=== PATIENT | male | born 1960 | race Hispanic/Latino ===

== ENCOUNTER 2020-08-28 07:46 | Emergency (ER) | payer BC ==
[~2020-08-28] VITALS: Ht 172.7 cm; Wt 67.7 kg
[2020-08-28] MEDS ORDERED: MICARDIS80 MG PO (08:17)
[2020-08-28] MEDS ORDERED: HYDROCHLOROTHIA25 MG (08:17)
[2020-08-28] MEDS ORDERED: METOPROLOL SUCC50 MG PO (08:17)
--- OUTSIDE RECORDS SUMMARY | 2020-08-28 08:29 | XMS REPORT | Continuity of Care Document ---
Author Author Nuovo WindGRECIA [employer] Address Unknown Phone Unavailable Care Team Providers Care Ecological Economist Name Role Phone [employer] Unavailable Un available Problems Problem Status Onset Date Classification Date Reported Comments Source Discharge Diagnosis: Abdominal pain 09/06/2016 09/09/2016 [facility] SENT- ABDOMINAL PAIN Active 09/06/2016 [facility] CARDIOLOGY Active 09/26/2014 [facility] Hypertensive disorder, systemic arterial (disorder) Resolved Problem 04/05/2018 [facility] Medications Medication Details Route Status Patient Instructions Ordering Provider Order Date Source Brompheniramine Maleate 0.4 MG/ML / Dext romethorphan Hydrobromide 2 MG/ML / Pseudoephedrine Hydrochloride 6 MG/ML Oral Solution [Bromfed DM] See Instructions, PRN cough, 5-10 mL PO TID 8 day, # 240 mL, 0 Refill(s), Pharmacy: [facility]/pharmacy #[id number] Inactive 12/29/2017 [facility] Brompheniramine Maleate 0.4 MG/ML / Dext romethorphan Hydrobromide 2 MG/ML / Pseudoephedrine Hydrochloride 6 MG/ML Oral Solution [Bromfed DM] See Instructions, PRN cough, 5-10 mL PO TID 8 day, # 240 mL, 0 Refill(s), Pharmacy: [facility]/pharmacy #[id number] Inactive 12/29/2017 [facility] Oseltamivir 75 MG Oral Capsule [Tamiflu] 75 mg, PO, Q12H, X 5 day, # 10 cap, 0 Refill(s), Pharmacy: [facility]/pharmacy #[id number] Inactive 12/29/2017 [facility] azithromycin 250 mg oral tablet See Instructions, Take 2 tablets by mouth the first day then 1 tablet by mouth daily on days 2-5., X 5 day, # 6 tab, 0 Refill(s), Pharmacy: [facility]/pharmacy #[id number] No Longer Active 12/29/2017 [facility] Codeine Phosphate 2 MG/ML / Guaifenesin 20 MG/ML Oral Solution [Cheratussin] 5 mL, PO, Q6H, PRN for cough and congest ion, X 7 day, # 120 mL, 0 Refill(s) Active 10/21/2017 [facility] Amoxicillin 875 MG / Clavulanate 125 MG Oral Tablet [Augmentin 875-mg] 875 mg = 1 tab, PO, BID, X 10 day, # 20 tab, 0 Refill(s), [id number] Active 10/21/2017 [facility] Oseltamivir 75 MG Oral Capsule [Tamiflu] 75 mg, PO, Q12H, X 5 day, # 10 cap, 0 Refill(s), [id number] Active 10[facility]21/2017 [facility] tramadol hydrochloride 50 MG Oral Tablet 50 mg = 1 tab, PO, Q4H, PRN as needed for pain, X 7 day, # 24 tab, 0 Refill(s) Active 09/06/2016 [facility] Ondansetron 4 mg, Route: IVP, Drug form: INJ, ONCE, Dosing Weight 69.091, kg, Priority: STAT, Start date: 09/06/16 13:54:00 MOLDER OPERATOR, Stop date: 09/06/16 13:54:00 MOLDER OPERATOR Inactive 09/06/2016 [facility] Morphine 4 mg, Route: IVP, ONC E, Dosing Weight 69.091, kg, Priority: STAT, Start date: 09/06/16 13:54:00 MOLDER OPERATOR, Stop date: 09/06/16 13:54:00 MOLDER OPERATOR Inactive 09/06/2016 [facility] Saline Flush 0.9% Notes: prese rvative free. Inactive 09/06/2016 [facility] Allergies, Adverse Reactions, Alerts No Known Medication Allergies Immunizations No Data Provided for This Section Results Order Name Results Value Reference Range Date Interpretation Comments Source CHEM PANEL eGFR 97 09/06/2016 Result Comment: The eGFR is calculated using the CKD-EPI formula. In most young, healthy individuals the eGFR will be >90 mL/min/1.73m2. The eGFR declines with age. An eGFR of 60-89 may be normal in some populations, particularly the elderly, for whom the CKD-EPI formula has not been extensively validated. Use of the eGFR is not recommended in the following populations:

Individuals with unstable creatinine concentrations, including patients and those with serious co-morbid conditions.

Patients with extremes in muscle mass or diet.

The data above are obtained from the National Kidney Disease Education Program (NKDEP) which additionally recommends that when the eGFR is used in patients with extremes of body mass index for purposes of drug dosing, the eGFR should be multiplied by the estimated BMI. [facility] CHEM PANEL Total Protein 7.5 6.4 - 8.4 09/06/2016 [facility] CHEM PANEL Albumin Lvl 3.8 3.5 - 5.0 09/06/2016 [facility] CHEM PANEL ALT 36 0 - 65 09/06/2016 [facility] CHEM PANEL Bili Total 1.2 0.2 - 1.3 09/06/2016 [facility] CHEM PANEL Alk Phos 64 39 - 136 09/06/2016 [facility] CHEM PANEL AST 21 0 - 37 09/06/2016 [facility] CHEM PANEL Chloride Lvl 104 95 - 109 09/06/2016 [facility] CHEM PANEL Sodium Lvl 140 135 - 145 09/06/2016 [facility] CHEM PANEL Potassium Lvl 3.7 3.5 - 5.1 09/06/2016 [facility] CHEM PANEL CO2 31 24 - 32 09/06/2016 [facility] CHEM PANEL Calcium Lvl 8.9 8.5 - 10.5 09/06/2016 [facility] CHEM PANEL Glucose Lvl 97 70 - 99 09/06/2016 [facility] CHEM PANEL BUN 15 7 - 22 09/06/2016 [facility] CHEM PANEL Creatinine Lvl 0.84 0.50 - 1.40 09/06/2016 [facility] CHEM PANEL AGAP 8.7 10.0 - 20.0 09/06/2016 [facility] CHEM PANEL B/C Ratio 18 6 - 25 09/06/2016 [facility] CHEM PANEL Globulin 3.7 2.7 - 4.2 09/06/2016 [facility] CHEM PANEL A/G Ratio 1.0 0.7 - 1.6 09/06/2016 [facility] CHEM PANEL Lipase Lvl 149 73 - 393 09/06/2016 [facility] CHEM PANEL Magnesium Lvl 2.1 1.8 - 2.4 09/06/2016 [facility] HEMATOLOGY Monocytes # 0.5 0.0 - 0.8 09/06/2016 [facility] HEMATOLOGY Eosinophils # 0.1 0.0 - 0.5 09/06/2016 [facility] HEMATOLOGY Monocytes 7.3 2.0 - 12.0 09/06/2016 [facility] HEMATOLOGY Segs 63.5 45.0 - 75.0 09/06/2016 [facility] HEMATOLOGY Lymphocytes 27.6 20.0 - 40.0 09/06/2016 [facility] HEMATOLOGY Segs-Bands # 4.2 1.5 - 8.1 09/06/2016 [facility] HEMATOLOGY Lymphocytes # 1.8 1.0 - 5.5 09/06/2016 [facility] HEMATOLOGY Basophils 0.5 0.0 - 1.0 09/06/2016 [facility] HEMATOLOGY Eosinophils 1.1 0.0 - 4.0 09/06/2016 [facility] HEMATOLOGY MPV 7.8 7.4 - 10.4 09/06/2016 [facility] HEMATOLOGY Platelet 160 133 - 450 09/06/2016 [facility] HEMATOLOGY RDW 12.8 11.5 - 14.5 09/06/2016 [facility] HEMATOLOGY RBC 5.20 4.70 - 6.10 09/06/2016 [facility] HEMATOLOGY WBC 6.6 3.7 - 10.4 09/06/2016 [facility] HEMATOLOGY Hgb 15.2 14.0 - 18.0 09/06/2016 [facility] HEMATOLOGY MCV 88.0 80.0 - 94.0 09/06/2016 [facility] HEMATOLOGY Hct 45.7 42.0 - 54.0 09/06/2016 [facility] MCHC 33.2 32.0 - 36.0 09/06/2016 [facility] MCH 29.2 27.0 - 31.0 09/06/2016 [facility] URINE AND STOOL UA Protein Negative mg/dL Negative mg/dL 09/06/2016 [facility] URINE AND STOOL UA Glucose Negative mg/dL Negative mg/dL 09/06/2016 [facility] URINE AND STOOL UA Spec Grav 1.016 <=1.030 09/06/2016 [facility] URINE AND STOOL UA pH 6.0 5.0 - 8.0 09/06/2016 [facility] URINE AND STOOL UA Turbidity Clear (09/06/16 12:44 PM) Clear 09/06/2016 [facility] URINE AND STOOL UA Color Ltyellow 09/06/2016 [facility] URINE AND STOOL UA Sq Epi None Seen 09/06/2016 [facility] URINE AND STOOL UA Urobilinogen <=1.0 mg/dL 0.1 - 1.0 09/06/2016 [facility] URINE AND STOOL UA RBC <1 0 - 2 09/06/2016 [facility] URINE AND STOOL UA Mucus Few /LPF None Seen /LPF 09/06/2016 [facility] URINE AND STOOL UA Ketones Negative mg/dL Negative mg/dL 09/06/2016 [facility] URINE AND STOOL UA Bili Negative *NA* (09/06/16 12:44 PM) Negative 09/06/2016 [facility] URINE AND STOOL UA Nitrite Negative (09/06/16 12:44 PM) Negative 09/06/2016 [facility] URINE AND STOOL UA Leuk Est Negative (09/06/16 12:44 PM) Negative 09/06/2016 [facility] URINE AND STOOL UA Blood Negative (09/06/16 12:44 PM) Negative 09/06/2016 [facility] URINE AND STOOL UA WBC <1 0 - 5 09/06/2016 [facility] Pathology Reports No Data Provided for This Section Diagnostic Reports Report Value Date Source ED Abdomen/Pelvis IV contrast only CT Study: ED Abdomen/Pelvis IV contrast only CT Clinical Indication: Right lower quadrant pain Comparison: None TECHNIQUE: Multiple axial CT images of the abdomen and pelvis were acquired following the administration of intravenous contrast. Sagittal and coronal reformatted images were performed. CT Radiation Dose DLP 1509.34 mGy-cm FINDINGS: The visualized lung bases are clear bilaterally. The liver is diffusely low in attenuation, compatible with fatty infiltration. 1.2 cm left renal hypodense cyst is seen. Gallbladder, pancreas, spleen, adrenal glands, and right kidney are unremarkable. No intrahepatic or extrahepatic biliary duct dilatation is seen. Urinary bladder is well-distended. Prostate is unremarkable. Numerous diverticula throughout the sigmoid and descending colon are seen without inflammatory change to suggest acute diverticulitis. Appendix is unremarkable. No free air, free fluid, or pathologic adenopathy is seen. Degenerative changes of the lumbar spine are seen. IMPRESSION: 1. No acute intra-abdominal/pelvic abnor mality. 2. No evidence of acute appendicitis. 3. Colonic diverticulosis without acute diverticulitis. 4. Hepatic steatosis. SL: [id number] 09/06/2016 [facility] Consultation Notes No Data Provided for This Section Discharge Summaries No Data Provided for This Section History and Physicals No Data Provided for This Section Vital Signs Vital Sign Value Date Comments Source BMI Calculated 23.16 12/29/2017 [facility] Weight 69.091 12/29/2017 [facility] Temperature Oral (F) 98.2 F 12/29/2017 [facility] Heart Rate 88 12/29/2017 [facility] Systolic (mm Hg) 128 12/29/2017 [facility] Diastolic (mm Hg) 73 12/29/2017 [facility] Height 172.72 cm 12/29/2017 [facility] BMI Calculated 22.7 10/21/2017 [facility] Weight 67.727 10/21/2017 [facility] Height 172.72 cm 10/21/2017 [facility] Temperature Oral (F) 97.5 F 10/21/2017 [facility] Heart Rate 84 10/21/2017 [facility] Systolic (mm Hg) 127 10/21/2017 [facility] Diastolic (mm Hg) 75 10/21/2017 [facility] Respitory Rate 18 10/21/2017 [facility] Heart Rate 68 09/06/2016 [facility] Temperature Oral (F) 97.5 F 09/06/2016 [facility] Systolic (mm Hg) 126 09/06/2016 [facility] Diastolic (mm Hg) 65 09/06/2016 [facility] Respitory Rate 18 09/06/2016 [facility] Height 172.72 cm 09/06/2016 [facility] BMI Calculated 23.16 09/06/2016 [facility] Weight 69.091 09/06/2016 [facility] Temperature Oral (F) 97.7 F 09/06/2016 [facility] Respitory Rate 18 09/06/2016 [facility] Systolic (mm Hg) 181 09/06/2016 [facility] Diastolic (mm Hg) 79 09/06/2016 [facility] Heart Rate 80 09/06/2016 [facility] Encounters Location Location Details Encounter Type Encounter Number Reason For Visit Attending Provider ADM Date DC Date Status Source [facility] [id number] David Danielle 09/06/2016 09/06/2016 [facility] Outpatient [id number] BJ MAGALLANES 10/21/2017 [facility] [place] [facility] [id number] 10/21/2017 10/22/2017 [facility] Outpatient [id number] BJKACEY MAGALLANES 12/28/2017 [facility] [place] [facility] [id number] 12/29/2017 12/29/2017 [facility] Procedures No Data Provided for This Section Assessment and Plan No Data Provided for This Section Plan of Care No Data Provided for This Section Social History Social History Date Source Social History TypeResponse Alcohol Current Smoking Status Never smoker; Exposure to Tobacco Smoke None; Cigarette Smoking Last 365 Days Yes; Reg Smoking Cessation Counseling No entered on: 12/28/17 10/21/2017 [facility] No data available for this section 09/06/2016 [facility] Family History No Data Provided for This Section Advance Directives No Data Provided for This Section Functional Status No Data Provided for This Section
--- OUTSIDE RECORDS SUMMARY | 2020-08-28 08:29 | XMS REPORT | Clinical Summary ---
Author Author MARY ANN BizzingoCaribou Memorial HospitalNess ComputingSarasota Memorial Hospital Address Unknown Phone Unavailable Care Team Providers Care Daylight Driller Name Role Phone Pcp, No PCP Unavailable Allergies No Known Allergies Medications End Date Status Medication Sig Dispensed Refills Start Date Active telmisartan-hydrochloroth Take 1 tablet 0 iazide (MICARDIS HCT) by mouth 80-25 mg per tablet daily. Active metoprolol tartrate Take 50 mg by 0 (LOPRESSOR) 50 MG tablet mouth daily. Active Problems Not on file Encounters Care Team Description Date Type Specialty Lizbeth Arredondo MD Chest pain, unspecified type (Primary Dx ) 07/01/2020 Emergency Emergency Medicine 07/01/2020 Orders Only General Internal Me dicine 07/01/2020 Travel after 08/28/2019 Social History Date Tobacco Use Types Packs/Day Years Used Never Smoker Smokeless Tobacco: Never Used Drinks/Week oz/Week Comments Alcohol Use occasional Yes Alcohol Habits Answer Date Recorded How often do you have a drink containing alcohol? Never 07/01/2020 How many drinks containing alcohol do you have on No t asked a typical day when you are drinking? How often do you have six or more drinks on one Not asked occasion? Sex Assigned at Date Recorded Not on file Last Filed Vital Signs Reading Time Taken Comments Vital Sign 121/64 07/01/2020 11:00 AM CDT Blood Pressure 56 07/01/2020 11:00 AM CDT Pulse 36.1 C (97 F) 07/01/2020 6:52 AM CDT Temperature 13 07/01/2020 11:00 AM CDT Respiratory Rate 98% 07/01/2020 11:00 AM CDT Oxygen Saturation - - Inhaled Oxygen Concentration 70.8 kg (156 lb) 07/01/2020 6:52 AM CDT Weight 172.7 cm (5' 8") 07/01/2020 6:52 AM CDT Height 23.72 07/01/2020 6:52 AM CDT Body Mass Index Plan of Treatment Health Maintenance Due Date Last Done Comments COLON CANCER SCREENING 1958 COLONOSCOPY LIPID PANEL 1993 INFLUENZA VACCINE (#1) 2020 Procedures Comments Procedure Name Priority Date/Time Associated Diag nosis REPORT OF PROCEDURE - 07/03/2020 ENDOSCOPY SCAN 2:43 PM CDT TROPONIN I STAT 07/01/2020 9:50 AM CDT ECG 12-LEAD Routine 07/01/2020 9:48 AM CDT Procedure Note - Interface, External Ris In - 07/01/2020 12:29 PM CDT Ventricula r Rate 63 BPM Atrial Rate 63 BPM P-R Interval 194 ms QRS Duration 108 ms Q-T Interval 396 ms QTC Calculatio n(Bazett) 405 ms P [place] 49 degrees R [place] 41 degrees T [place] 39 degrees Normal sinus rhythm Incomplete right bundle branch block Borderline ECG When compared with ECG of 2 20:13, No significan t change was found ECG 12-LEAD STAT 07/01/2020 9:48 AM CDT XR CHEST 1 VIEW STAT 07/01/2020 PORTABLE/BEDSIDE 8:14 AM CDT CBC W/PLT COUNT & AUTO STAT 07/01/2020 DIFFERENTIAL 7:36 AM CDT PHOSPHORUS STAT 07/01/2020 7:36 AM CDT MAGNESIUM STAT 07/01/2020 7:36 AM CDT HEPATIC FUNCTION PANEL STAT 07/01/2020 7:36 AM CDT LIPASE STAT 07/01/2020 7:36 AM CDT TROPONIN I STAT 07/01/2020 7:36 AM CDT BASIC METABOLIC PANEL (7) STAT 07/01/2020 7:36 AM CDT B-TYPE NATRIURETIC FACTOR STAT 07/01/2020 (BNP) 7:36 AM CDT CBC W/PLT COUNT & AUTO STAT 07/01/2020 DIFFERENTIAL 7:36 AM CDT ECG 12-LEAD Routine 07/01/2020 6:49 AM CDT Procedure Note - Interface, External Ris In - 07/01/2020 11:10 PM CDT Ventricula r Rate 67 BPM Atrial Rate 67 BPM P-R Interval 198 ms QRS Duration 110 ms Q-T Interval 386 ms QTC Calculatio n(Bazett) 407 ms P [place] 52 degrees R [place] 55 degrees T [place] 53 degrees Normal sinus rhythm Incomplete right bundle branch block Borderline ECG When compared with ECG of 2 20:13, No significan t change was found ECG 12-LEAD STAT 07/01/2020 6:49 AM CDT after 08/28/2019 Results * EKG-SCANNED (07/03/2020 2:43 PM CDT) Narrative Performed At This result has an attachment that is n ot available. * Troponin I (07/01/2020 9:50 AM CDT) Only the most recent of 2 results within the time period is included. Troponin I <0.01 0.00 - 0.03 ng/mL [facility] Specimen Blood Narrative Performed At Troponin I (TnI) levels must be interpreted in the co ntext of the presenting [facility] symptoms and the clinical findings. Elevated TnI leve ls indicate myocardial [facility] damage, but are not specific for ischem ic heart disease. Elevated TnI levels are seen in patients with other cardiac con ditions (including myocarditis and congestive heart failure), and slight T nI elevations occur in patients with other conditions, including sepsis, praveen al failure, acidosis, acute neurological disease, and persistent tachyarrhythmia . Retort Fireman ID - SHEILA Sharpe Performing Organization Address City/State/Zipcode Ph one Number [place] [address] [facility] * ECG 12 lead (07/01/2020 9:48 AM CDT) Only the most recent of 2 results within the time period is included. Specimen Narrative Performed At Ventricular Rate 63 BPM GE MUSE Atrial Rate 63 BPM P-R Interval 194 ms QRS Duration 108 ms Q-T Interval 396 ms QTC Calculation(Bazett) 405 ms P [place] 49 degrees R [place] 41 degrees T [place] 39 degrees Normal sinus rhythm Incomplete right bundle branch block Borderline ECG When compared with ECG of 05-FEB-2012 2 0:13, No significant change was found Confirmed by MD Rosa Roberto ([id number]) on 07/01/2020 5:24:28 PM Procedure Note Interface, External Ris In - 07/01/2020 5:24 PM CDT Ventricular Rate 63 BPM Atrial Rate 63 BPM P-R Interval 194 ms QRS Duration 108 ms Q-T Interval 396 ms QTC Calculation(Bazett) 405 ms P [place] 49 degrees R [place] 41 degrees T [place] 39 degrees Normal sinus rhythm Incomplete right bundle branch block Borderline ECG When compared with ECG of 05-FEB-2012 20:13, No significant change was found Confirmed by MD Rosa Roberto ([id number]) on 07/01/2020 5:24:28 PM Performing Organization Address [facility] Ph one Number [employer] MUSE * XR chest 1 view portable / bedside (07/01/2020 8:14 AM CDT) Specimen Narrative Performed At FINAL REPORT [facility] CLINICAL HISTORY: CHEST PAIN TECHNIQUE: 1 view of the chest. COMPARISON: 02/05/2012 IMPRESSION: There are no focal infiltrates or effus ions. The cardiomediastinal silhouette is within normal limits for size. The visualized bones appear intact. Signed: Evin Crenshaw MD Report Verified Date/Time: 07/01/2020 08:30:07 Reading Location: [facility] gy Reading Room Procedure Note Interface, External Ris In - 07/01/2020 8:32 AM CDT FINAL REPORT CLINICAL HISTORY: CHEST PAIN TECHNIQUE: 1 view of the chest. COMPARISON: 02/05/2012 IMPRESSION: There are no focal infiltrates or effusions. The cardiomediastinal silhouette is within normal limits for size. The visualized bones appear intact. Signed: Evin Crenshaw MD Report Verified Date/Time: 07/01/2020 08:30:07 Reading Location: [facility] Radiology Reading Room Performing Organization Address City/State/Zipcode Ph one Number GE RIS * CBC with platelet count + automated diff (07/01/2020 7:36 AM CDT) WBC 5.0 3.5 - 10.5 K/L [facility] RBC 5.02 4.63 - 6.08 M/L [facility] Hemoglobin 15.5 13.7 - 17.5 GM/DL [facility] Hematocrit 45.6 40.1 - 51.0 % [facility] MCV 90.8 79.0 - 92.2 fL [facility] MCH 30.9 25.7 - 32.2 pg [facility] MCHC 34.0 32.3 - 36.5 GM/DL [facility] RDW 12.1 11.6 - 14.4 % [facility] Platelets 150 150 - 450 K/CU MM [facility] MPV 9.5 9.4 - 12.4 fL [facility] nRBC 0 0 - 0 /100 WBC [facility] % Neutros 58 % [facility] % Lymphs 29 % [facility] % Monos 9 % [facility] % Eos 3 % [facility] % Baso 1 % [facility] # Neutros 2.89 1.78 - 5.38 K/L [facility] # Lymphs 1.44 1.32 - 3.57 K/L [facility] # Monos 0.43 0.30 - 0.82 K/L [facility] # Eos 0.15 0.04 - 0.54 K/L [facility] # Baso 0.03 0.01 - 0.08 K/L [facility] Immature 0 0 - 1 % [facility] Specimen Blood Performing Organization Address City/State/Zipcode Ph one [address] [facility] * Phosphorus (07/01/2020 7:36 AM CDT) Phosphorus 3.4 2.3 - 4.7 mg/dL [facility] Specimen Blood Narrative Performed At Retort Fireman ID - SHEILA M [facility] Performing Organization Address City/State/Zipcode Ph one [address] [facility] * B-type Natriuretic Factor (BNP) (07/01/2020 7:36 AM CDT) BNP <10 0 - 100 pg/mL [facility] Specimen Blood Narrative Performed At Retort Fireman ID - ANDREAASI [facility] Performing Organization Address City/[facility] Ph one [phone] [place] [address] * Magnesium (07/01/2020 7:36 AM CDT) Magnesium 2.0 1.6 - 2.6 mg/dL [facility] Specimen Blood Narrative Performed At Retort Fireman ID - SHEILA Sharpe [facility] Performing Organization Address City/State/Zipcode Ph one [address] [facility] * Lipase (07/01/2020 7:36 AM CDT) Lipase 31 8 - 78 U/L [facility] Specimen Blood Narrative Performed At Retort Fireman ID - SHEILA M [facility] Performing Organization Address City/State/Zipcode Ph one [address] [facility] * Hepatic function panel (07/01/2020 7:36 AM CDT) Protein, Total 7.1 6.0 - 8.3 gm/dL [facility] Albumin 4.2 3.5 - 5.0 g/dL [facility] Total Bilirubin 1.4 (H) 0.2 - 1.2 mg/dL [facility] Bilirubin, 0.6 (H) 0.1 - 0.5 mg/dL [facility] Alkaline 61 40 - 150 U/L [facility] AST 23 5 - 34 U/L [facility] ALT 30 6 - 55 U/L [facility] Specimen Blood Narrative Performed At Retort Fireman VANESSA Sharpe [facility] Performing Organization Address City/State/[facility] Ph one Number [address] [facility] * Basic Metabolic Panel (07/01/2020 7:36 AM CDT) Sodium 141 136 - 145 meq/L [facility] Potassium 3.8 3.5 - 5.1 meq/L [facility] Chloride 103 98 - 107 meq/L [facility] CO2 30 (H) 22 - 29 meq/L [facility] BUN 17 7 - 21 mg/dL [facility] Creatinine 0.86 0.57 - 1.25 mg/dL [facility] Glucose 113 (H) 70 - 105 mg/dL [facility] Calcium 9.0 8.4 - 10.2 mg/dL [facility] EGFR 90Comment: ESTIMATED GFR IS mL/min/1.[address] [facility] NOT ACCURATE CREATININE [facility] CLEARANCE IN PREDICTING MEDICAL CENTER GLOMERULAR FILTRATION RATE. ESTIMATED GFR IS NOT APPLICABLE FOR DIALYSIS PATIENTS. Specimen Blood Narrative Performed At Retort Fireman ID - SHEILA Sharpe [facility] Performing Organization Address City/State/Zipcode Ph one Number [facility] [address] [place] [address] [facility]ENTER after 08/28/2019 Insurance Type Payer Benefit Subscriber ID Effective Phone Address Plan / Dates Group PPO BLUE CROSS/BLUE SHIELD BCBS PPO [id number] 2020-P [address] EPO resent [id number] [place] [address] [id number]
--- OUTSIDE RECORDS SUMMARY | 2020-08-28 08:30 | XMS REPORT | Continuity of Care Document ---
Author Author [facility] t Organization [facility] Address [address] [place] [address] Phone Unavailable Care Team Providers Care Visual Inspector Name Role Phone Pcp, No PCP Unavailable Hortencia Arredondo MD Attphys [phone] HORTENCIA ARREDONDO Attphys Unavailable David Danielle Attphys Payers Payer Name Policy Type Policy Number Effective Date Expiration Date [employer] BLUE CROSS/BLUE SHIELDBCBS PPO POS EPO [id number] [address], [place] [address]HNA [id number] 2020 00:00:00 [facility] Problems Condition Name Condition Details Condition Category Status Onset Date Resolution Date Last Treatment Date Treating Clinician Comments Source DR CRUZ- ABDOMINAL PAIN DR Ardon ENT- ABDOMINAL PAIN Active 09/06/2016 [facility] Active 2016-09-06 00:00:00 2016-09-06 14:04:00 [facility] CARDIOLOGY CARD IOLOGY Active 09/26/2014 [facility] Active 2014-09-26 00:00:00 2014-11-13 15:42:00 [facility] Hypertensive disorder, systemic arterial (disorder) Hypertensive disorder, systemic arterial (disorder) Resolved Problem 04/05/2018 [facility] Problem Resolved 2018-04-05 15:48:23 [facility] Discharge Diagnosis: Abdominal pain Discharge Diagnosis: Abdominal pain 09/06/2016 09/09/2016 [facility] Problem 2016-09-06 06:00:00 2016-09-09 04:46:44 2016-09-09 04:46:44 [facility] Allergies, Adverse Reactions, Alerts Allergy Name Allergy Type Status Severity Reaction(s) Onset Date Inacti ve Date Treating Clinician Comments Source No Known Allergies DA Active U 2020-08-25 00:00:00 [facility] Social History Social Habit Start Date Stop Date Quantity Comments Source History SDOH Alcohol Std Drinks [facility] History SDOH Alcohol Binge [facility] Sex Assigned At [facility] Tobacco use and exposure 2020-07-01 00:00:00 2020-07-01 00:00:00 Gregoryal odalys used [facility] Alcohol intake 2020-07-01 00:00:00 2020-07-01 00:00:00 Current drinker of alcohol (finding) [facility] Natanael r History SDOH Alcohol Frequency 2020-07-01 00:00:00 2020-07-01 00:00:0 0 1 [facility] Alcohol Comment 2020-07-01 00:00:00 2020-07-01 00:00:00 occasional [facility] Social History 2016-09-06 22:24:00 2016-09-06 22:24:00 [facility] Smoking Status Start Date Stop Date Source Never smoker [facility] Medications Ordered Medication Name Filled Medication Name Start Date Stop Da te Current Medication? Ordering Clinician Indication Dosage Frequency Signature (SIG) Comments Components Source telmisartan-hydrochlorothiazide (MICARDIS HCT) 80-25 mg per tablet 2020-07-01 07:35:50 Yes 1{tbl} QD Take 1 tablet by mouth daily. [facility] metoprolol tartrate (LOPRESSOR) 50 MG tablet 2020-07-01 07:35:50 Yes 50mg QD Take 50 mg by mouth daily. C [facility] Brompheniramine Maleate 0.4 MG/ML / Dext romethorphan Hydrobromide 2 MG/ML / Pseudoephedrine Hydrochloride 6 MG/ML Oral Solution [Bromfed DM] 2017-12-29 00:53:00 No See Instru ctions, PRN cough, 5-10 mL PO TID 8 day, # 240 mL, 0 Refill(s), [id number] Brompheniramine Maleate 0.4 MG/ML / Dext romethorphan Hydrobromide 2 MG/ML / Pseudoephedrine Hydrochloride 6 MG/ML Oral Solution [Bromfed DM] 2017-12-29 00:33:00 No See Instru ctions, PRN cough, 5-10 mL PO TID 8 day, # 240 mL, 0 Refill(s), [id number] Oseltamivir 75 MG Oral Capsule [Tamiflu] 2017-12-29 00:33:00 No 75 mg, PO, Q12H, X 5 day, # 10 cap, 0 Refill(s), [id number] azithromycin 250 mg oral tablet 2017-12-29 00:33:00 No See Instructions, Take 2 tablets by mouth the first day then 1 tablet by mouth daily on days 2-5., X 5 day, # 6 tab, 0 Refill(s), Pharmacy: [facility]/pharmacy #[id number] [facility] Codeine Phosphate 2 MG/ML / Guaifenesin 20 MG/ML Oral Soluti on [Cheratussin] 2017-10-21 17:47:00 Yes 5 mL, PO, Q6H, PRN for cough and congestion, X 7 day, # 120 mL, 0 Refill(s) [facility] Amoxicillin 875 MG / Clavulanate 125 MG Oral Tablet [Augment in 875-mg] 2017-10-21 17:47:00 Yes 875 mg = 1 tab, PO, BID, X 10 day, # 20 tab, 0 Refill(s), Pharmacy: [facility]/pharmacy #[id number] [facility] Oseltamivir 75 MG Oral Capsule [Tamiflu] 2017-10-21 17:47:00 Yes 75 mg, PO, Q12H, X 5 day, # 10 cap, 0 Refill(s), Pharmacy: [facility]/pharmacy #[id number] [facility] tramadol hydrochloride 50 MG Oral Tablet 2016-09-06 21:41:00 Yes 50 mg = 1 tab, PO, Q4H, PRN as needed for pain, X 7 day, # 24 tab, 0 Refill(s) [facility] Ondansetron 2016-09-06 19:54:00 No 4 mg, Route: IVP, Drug form: INJ, ONCE, Dosing Weight 69.091, kg, Priority: STAT, Start date: 09/06/16 13:54:00 MANAGER OF LOSS PREVENTION OPERATIONS, Stop date: 09/06/16 13:54:00 MANAGER OF LOSS PREVENTION OPERATIONS [facility] Morphine 2016-09-06 19:54:00 No 4 mg, Route: IVP, ONCE, Dosing Weight 69.091, kg, Priority: STAT, Start date: 09/06/16 13:54:00 MANAGER OF LOSS PREVENTION OPERATIONS, Stop date: 09/06/16 13:54:00 MANAGER OF LOSS PREVENTION OPERATIONS [facility] Saline Flush 0.9% 2016-09-06 18:26:00 No Notes: preservative free. [facility] Vital Signs Vital Name Observation Time Observation Value Comments Source Systolic blood pressure 2020-07-01 11:00:00 121 mm[Hg] [facility] Diastolic blood pressure 2020-07-01 11:00:00 64 mm[Hg] [facility] Heart rate 2020-07-01 11:00:00 56 /min [facility] Respiratory rate 2020-07-01 11:00:00 13 /min [facility] Oxygen saturation in Arterial blood by Pulse oximetry 07-01 11:00:00 98 /[facility] temperature 2020-07-01 06:52:00 36.11 Laura [facility] Body height 2020-07-01 06:52:00 172.7 cm [facility] Body weight 2020-07-01 06:52:00 70.761 kg [facility] BMI 2020-07-01 06:52:00 23.72 kg/m2 [facility] BMI Calculated 2017-12-29 00:07:00 Agustin Bolanos Weight 2017-12-29 00:07:00 [facility] Temperature Oral (F) 2017-12-29 00:07:00 98.2 F [facility] Heart Rate 2017-12-29 00:07:00 [facility] Systolic (mm Hg) 2017-12-29 00:07:00 Duglas rial Satish Diastolic (mm Hg) 2017-12-29 00:07:00 [facility] Height 2017-12-29 00:07:00 172.72 cm [facility] BMI Calculated 2017-10-21 17:08:00 [facility] Weight 2017-10-21 17:08:00 [facility] Height 2017-10-21 17:08:00 172.72 cm [facility] Temperature Oral (F) 2017-10-21 17:08:00 97.5 F [facility] [place] Heart Rate 2017-10-21 17:08:00 [facility] [place] Systolic (mm Hg) 2017-10-21 17:08:00 Duglas rial Satish Diastolic (mm Hg) 2017-10-21 17:08:00 [facility] Satish Respitory Rate 2017-10-21 17:08:00 [facility] [place] Heart Rate 2016-09-06 22:00:00 [facility] Temperature Oral (F) 2016-09-06 22:00:00 97.5 F [facility] Systolic (mm Hg) 2016-09-06 22:00:00 Duglas rial Satish Diastolic (mm Hg) 2016-09-06 22:00:00 Mem o[facility] Satish Respitory Rate 2016-09-06 22:00:00 [facility] Height 2016-09-06 18:18:00 172.72 cm [facility] BMI Calculated 2016-09-06 18:18:00 [facility] Weight 2016-09-06 18:18:00 [facility] Temperature Oral (F) 2016-09-06 18:18:00 97.7 F [facility] Respitory Rate 2016-09-06 18:18:00 [facility] [place] Systolic (mm Hg) 2016-09-06 18:18:00 [place] Diastolic (mm Hg) 2016-09-06 18:18:00 Mem o[facility] Satish Heart Rate 2016-09-06 18:18:00 [facility] [place] Procedures Procedure Date / Time Performed Performing Clinician [facility] e REPORT OF PROCEDURE - ENDOSCOPY SCAN 2020-07-03 14:43:50 Pro vider, Default Scanning [facility] TROPONIN I 2020-07-01 09:50:00 Lizbeth Arredondo [facility] ECG 12-LEAD 2020-07-01 09:48:57 Unknown, Hl7 Doctor [facility] XR CHEST 1 VIEW PORTABLE/BEDSIDE 2020-07-01 08:14:00 Maria ElenaYennifer hay Hortencia [facility] B-TYPE NATRIURETIC FACTOR (BNP) 2020-07-01 07:36:00 Ashley Arredondo Hortencia [facility] BASIC METABOLIC PANEL (7) 2020-07-01 07:36:00 Maria Elena, Lizbeth Hortencia [facility] TROPONIN I 2020-07-01 07:36:00 Maria Elena, Lizbeth Emanuel [facility] LIPASE 2020-07-01 07:36:00 Maria Elena, Lizbeth Hortencia [facility] HEPATIC FUNCTION PANEL 2020-07-01 07:36:00 Maria Elena, Lizbeth Ho [facility] MAGNESIUM 2020-07-01 07:36:00 Maria ElenaLizbeth Hortencia [facility] PHOSPHORUS 2020-07-01 07:36:00 Maria Elena, Lizbeth Hortencia [facility] CBC W/PLT COUNT & AUTO DIFFERENTIAL 2020-07-01 07:36:00 Lizbeth Collins Hortencia [facility] ECG 12-LEAD 2020-07-01 06:49:44 Unknown, Hl7 Doctor [facility] Plan of Care Planned Activity Planned Date Details Comments Source Future Scheduled Test 2020-06-16 00:00:00 INFLUENZA VACCINE (#1) [code = INFLUENZA VACCINE (#1)] [facility] r Future Scheduled Test 1993 00:00:00 Lipid panel (proce dure) [code = 72460021] [facility] r Future Scheduled Test 1958 00:00:00 Screening for joseline gnant neoplasm of colon (procedure) [code = 070877885] [facility] Encounters Start Date/Time End Date/Time Encounter Type Admission Type Attendi [facility] Care Department Encounter ID Source 2017-12-28 19:10:00 2017-12-28 23:59:59 Outpatient [facility] [id number] 2017-10-21 09:50:00 2017-10-21 23:59:59 Outpatient [facility] [id number] 2016-09-06 12:15:00 2016-09-06 16:24:00 Outpatient David Danielle [facility] [id number] Results Test Description Test Time Test Comments Results Result Comments Source B-TYPE NATRIURETIC PEPTIDE 2020-08-25 17:42:00 Test Item B-TYPE NATRIURETIC PEPTIDE (test code = BNP) 30.1 PG/ML 0-100 N BASIC METABOLIC [id number] 17:30:00* Test Item Value Reference Range Interpretation Comments SODIUM (test code = NA) 138 MMOL/L 136-143 N POTASSIUM (test code = K) 4.1 MMOL/L 3.5-5.1 N CHLORIDE (test code = CL) 104 MMOL/L 98-107 N CARBON DIOXIDE (test code = CO2) 24 mmol/L 24-31 N GLUCOSE (test code = GLU) 122 mg/dL 70-104 H BLOOD UREA NITROGEN (test code = BUN) 17.0 MG/DL 7.0-21.0 N GLOMERULAR FILTRATION RATE (test code = GFR) >=60 max estimate >60 The estimated glomerular filtration rate is computed usingpatient race, age (>18), sex, and serum creatinine. If anyof the needed data elements are missing the Laboratory cannot compute an estimation of the glomerular filtration rate. CREATININE (test code = CREAT) 1.0 mg/dL 0.8-1.5 N CALCIUM (test code = CA) 9.2 mg/dL 8.8-10.2 N [id number] 17:14:00* Test Item Value Reference Range Interpretation Comments TROPONIN-I (test code = TROPI) < 0.30 ng/mL 0.00-0.30 N INTERPRETATIVE DATA:Negative or inconclusive reuslts do not exclude myocardialinfarction. Serial tests at appropriate intervals may benecessary. CBC W/AUTO [id number] 17:04:00* Test Item Value Reference Range Interpretation Comments WHITE BLOOD CELL (test code = WBC) 5.4 x10 3/uL 4.8-10.8 N RED BLOOD CELL (test code = RBC) 4.79 x10 6/uL 4.70-6.10 N HEMOGLOBIN (test code = HGB) 14.9 g/dL 14.5-20 N HEMATOCRIT (test code = HCT) 43.4 % 42.0-52.0 N MEAN CELL VOLUME (test code = MCV) 90.6 fL 80.0-94.0 N MEAN CELL HGB (test code = MCH) 31.1 pg 27-31 H MEAN CELL HGB CONCENTRATION (test code = MCHC) 34.3 G/DL 33-36.5 N RED CELL DISTRIBUTION WIDTH (test code = RDW) 12.1 % 12.9-16. 9 L PLATELET COUNT (test code = PLT) 146 150-440 L MEAN PLATELET VOLUME (test code = MPV) 10.1 fL 8.9-12.4 N NEUTROPHIL % (test code = NT%) 57.7 % 42.2-75.2 N LYMPHOCYTE % (test code = LY%) 31.0 % 20.5-51.1 N MONOCYTE % (test code = MO%) 8.8 % 1.7-9.3 N EOSINOPHIL % (test code = EO%) 1.5 % 0.0-7.0 N BASOPHIL % (test code = BA%) 0.6 % 0-2.5 N NEUTROPHIL # (test code = NT#) 3.09 x10 3/uL 1.80-7.70 N LYMPHOCYTE # (test code = LY#) 1.66 x10 3/uL 1.00-4.80 N MONOCYTE # (test code = MO#) 0.47 x10 3/uL 0.00-0.80 N EOSINOPHIL # (test code = EO#) 0.08 x10 3/uL 0.00-0.45 N BASOPHIL # (test code = BA#) 0.03 x10 3/uL 0.0-0.20 N - XR CHEST 1 [id number] 16:46:00 [facility] CENTERName: GRECIA BAZZI : 1960 Sex: M Patient Name: GRECIA BAZZI Unit No: [id number] EXAMS: CPT CODE: [id number] XR CHEST 1 V [id number] EXAM: - XR CHEST 1 V LOCATION: C3 HISTORY: Chest Pain COMPARISON: None available time of interpretation. FINDINGS: Single view of the chest. No indwelling lines or tubes. No pneumothorax . The lungs are clear without significant effusions. The mediast inal contours are unremarkable/unchanged. No acute osseous findings are present. IMPRESSION: No acute cardiopulmonary abno rmality. at 1646 Reported and signed by: ISAIAH RODRIGUEZ M.D. CC: Nba morrow MD Technologist: Tal Murphy Fluoro Time: DAP (Gy m2): Air Kerma (mGy): Trscr Dt/Tm: 08/25/2020 (1646) by:[email or web address] Printed Date/Time: 08/25/2020 (165) Name: GRECIA BAZZI [facility] Phys: Nba Omalley MD [address] : 1960 Age: 60 Sex: [place] [address] Loc: P. ERS Exam Date: 08/25/2020 Status: REG E R PH: FAX: PAGE 1 Signed Repo rt ECG 12 [id number] 17:24:33Interface, External Ris In - 07/01/2020 5:24 PM CDTVentricular Rate 63 BPMAtrial Rate 63 BPMP-R Interval 194 msQRS Duration 108 msQ-T Interval 396 msQTC Calcul ation(Bazett) 405 msP [place] 49 degreesR [place] 41 degreesT [place] 39 degreesNormal si nus rhythmIncomplete right bundle branch blockBorderline ECGWhen compared with E CG of 05-FEB-2012 20:13,No significant change was foundConfirmed by Yudith andrade MD, Roberto ([id number]) on 07/01/2020 5:24:28 [facility] Troponin [id number] 10:21:00* Test Item Value Reference Range Interpretation Comments Troponin I (test code = 46700-6) <0.01 0-0.03 SHEREEN (test code = SHEREEN) Troponin I (TnI) levels must be interpreted in the context of the presenting symptoms and the clinical findings. Elevated TnI levels indicate myocardial damage, but are not specific for ischemic heart disease. Elevated TnI levels are seen in patients with other cardiac conditions (including myocarditis and congestive heart failure), and slight TnI elevations occur in patients with other conditions, including sepsis, renal failure, acidosis, acute neurological disease, and persistent tachyarrhythmia.Vp Genetic ID - SHEILA [facility] Interpretation (test code = 86488-8) [facility] [id number] 10:21:00* Test Item Value Reference Range Interpretation Comments TROPONIN I (BEAKER) (test code = 397) < ng/mL 0.00-0.03 Troponin I (TnI) levels must be interpreted in the context of the presenting sym ptoms and the clinical findings. Elevated TnI levels indicate myocardial damage, but are not specific for ischemic heart disease. Elevated TnI levels are seen in patients with other cardiac conditions (including myocarditis and congestive h eart failure), and slight TnI elevations occur in patients with other conditions , including sepsis, renal failure, acidosis, acute neurological disease, and per sistent tachyarrhythmia.Vp Genetic ID - SHEILA MRAD, CHEST, 1 VIEW, NON DEPT 2020-07-01 08:30:00Reason for exam:->CHEST PAINShould this be performed at the bedside?->YesFINAL REPORT CLINICAL HISTORY: CHEST PAIN TECHNIQUE: 1 view of the chest. COMPARISON: 02/05/2012 IMPRESSION: There are no focal infiltrates or effusions. The cardiomediastinal silhouette is within normal limits for size. The visualized bones appear intact. Signed: Evin Sunshine Verified Date/Time: 07/01/2020 08:30:07 Reading Location: [facility] Reading Room chest 1 view portable / [id number] 08:30:00Interface, External Ris In - 07/01/2020 8:32 AM CDTFINAL REPORT CLINICAL HISTORY: CHEST PAIN TECHNIQUE: 1 view of the chest. COMPARISON: 02/05/2012 IMPRESSION: There are no focal infiltrates or effusions. The cardiomediastinal silhouette is within normal limits for size. The visualized bones appear intact. Signed: Evin Sunshine MDReport Verified Date/Time: 07/01/2020 08:30:07 Reading Location: [facility] Reading Room [facility] Nat[facility] Factor (BNP)2020-07-01 08:08:00* Test Item Value Reference Range Interpretation Comments BNP (test code = 36762-6) <10 0-100 SHEREEN (test code = SHEREEN) Vp Genetic ID - EDASI Lab Interpretation (test code = 71817-4) Normal [facility] NATRIURETIC FACTOR (BNP)2020-07-01 08:08:00 * Test Item Value Reference Range Interpretation Comments B-TYPE NATRIURETIC PEPTIDE (BEAKER) (test code = 700) < pg/mL 0-100 Vp Genetic ID - ANDREAASITROPONIN [id number] 08:07:00* Test Item Value Reference Range Interpretation Comments TROPONIN I (BEAKER) (test code = 397) < ng/mL 0.00-0.03 Troponin I (TnI) levels must be interpreted in the context of the presenting sym ptoms and the clinical findings. Elevated TnI levels indicate myocardial damage, but are not specific for ischemic heart disease. Elevated TnI levels are seen in patients with other cardiac conditions (including myocarditis and congestive h eart failure), and slight TnI elevations occur in patients with other conditions , including sepsis, renal failure, acidosis, acute neurological disease, and per sistent tachyarrhythmia.Vp Genetic ID - SHEILA MBasic Metabolic [id number] 08:00:00* Test Item Value Reference Range Interpretation Comments Sodium (test code = 2951-2) 141 meq/L 136-145 Potassium (test code = 2823-3) 3.8 meq/L 3.5-5.1 Chloride (test code = 2075-0) 103 meq/L 98-107 CO2 (test code = 2027-9) 30 meq/L 22-29 H BUN (test code = 3094-0) 17 mg/dL 7-21 Creatinine (test code = 2160-0) 0.86 mg/dL 0.57-1.25 Glucose (test code = 2345-7) 113 mg/dL 70-105 H Calcium (test code = 07729-4) 9.0 mg/dL 8.4-10.2 EGFR (test code = 52684-7) 90 mL/min/1.73 sq m ESTIMATED GFR IS NOT ACCURATE CREATININE CLEARANCE IN PREDICTING GLOMERULAR FILTRATION RATE. ESTIMATED GFR IS NOT APPLICABLE FOR DIALYSIS PATIENTS. SHEREEN (test code = SHEREEN) Vp Genetic ID [facility] Lab Interpretation (test code = 94429-1) Abnormal [facility] function [id number] 08:00:00* Test Item Value Reference Range Interpretation Comments Protein, Total (test code = 2885-2) 7.1 6.0- 8.3 gm/dL Albumin (test code = 44155-4) 4.2 g/dL 3.5-5 Total Bilirubin (test code = 1974-2) 1.4 mg/dL 0.2-1.2 H Bilirubin, Direct (test code = 1967-7) 0.6 mg/dL 0.1-0.5 H Alkaline Phosphatase (test code = 6768-6) 61 U/L 40-150 AST (test code = 1920-8) 23 U/L 5-34 ALT (test code = 1742-6) 30 U/L 6-55 SHEREEN (test code = SHEREEN) [facility] Interpretation (test code = 80942-8) Abnormal [facility] HospitalLipase2020-09-16 08:00:00* Test Item Value Reference Range Interpretation Comments Lipase (test code = 3040-3) 31 U/L 8-78 SHEREEN (test code = SHEREEN) Vp Genetic ID [facility] Lab Interpretation (test code = 38720-5) Normal [facility] HospitalMagnesium2020-09-16 08:00:00* Test Item Value Reference Range Interpretation Comments Magnesium (test code = 41198-5) 2.0 mg/dL 1.6-2.6 SHEREEN (test code = SHEREEN) Vp Genetic VANESSA SOSA M Lab Interpretation (test code = 50178-3) Normal [facility] HospitalPhosphorus2020-09-16 08:00:00* Test Item Value Reference Range Interpretation Comments Phosphorus (test code = 2777-1) 3.4 mg/dL 2.3-4.7 SHEREEN (test code = SHEREEN) Vp Genetic VANESSA Sharpe Lab Interpretation (test code = 09846-3) Normal [facility] HospitalPHOSPHORUS2020-09-16 08:00:00* Test Item Value Reference Range Interpretation Comments PHOSPHORUS (BEAKER) (test code = 604) 3.4 mg/dL 2.3-4.7 Vp Genetic VANESSA SOSA [id number] 08:00:00* Test Item Value Reference Range Interpretation Comments MAGNESIUM (BEAKER) (test code = 627) 2.0 mg/dL 1.6-2.6 Vp Genetic VANESSA SOSA MBASIC METABOLIC [id number] 08:00:00* Test Item Value Reference Range Interpretation Comments SODIUM (BEAKER) (test code = 381) 141 meq/L 136-145 POTASSIUM (BEAKER) (test code = 379) 3.8 meq/L 3.5-5.1 CHLORIDE (BEAKER) (test code = 382) 103 meq/L 98-107 CO2 (BEAKER) (test code = 355) 30 meq/L 22-29 H BLOOD UREA NITROGEN (BEAKER) (test code = 354) 17 mg/dL 7-21 CREATININE (BEAKER) (test code = 358) 0.86 mg/dL 0.57-1.25 GLUCOSE RANDOM (BEAKER) (test code = 652) 113 mg/dL 70-105 H CALCIUM (BEAKER) (test code = 697) 9.0 mg/dL 8.4-10.2 EGFR (BEAKER) (test code = 1092) 90 mL/min/1.73 sq m ESTIMATED GFR IS NOT ACCURATE CREATININE CLEARANCE IN PREDICTING GLOMERULAR FILTRATION RATE. ESTIMATED GFR IS NOT APPLICABLE FOR DIALYSIS PATIENTS. Vp Genetic ID Danita SOSA EPATIC FUNCTION [id number] 08:00:00* Test Item Value Reference Range Interpretation Comments TOTAL PROTEIN (BEAKER) (test code = 770) 7.1 gm/dL 6.0-8.3 ALBUMIN (BEAKER) (test code = 1145) 4.2 g/dL 3.5-5.0 BILIRUBIN TOTAL (BEAKER) (test code = 377) 1.4 mg/dL 0.2-1.2 H BILIRUBIN DIRECT (BEAKER) (test code = 706) 0.6 mg/dL 0.1-0.5 H ALKALINE PHOSPHATASE (BEAKER) (test code = 346) 61 U/L 40-150 AST (SGOT) (BEAKER) (test code = 353) 23 U/L 5-34 ALT (SGPT) (BEAKER) (test code = 347) 30 U/L 6-55 Vp Genetic ID - SHEILA [id number] 08:00:00* Test Item Value Reference Range Interpretation Comments LIPASE (BEAKER) (test code = 749) 31 U/L 8-78 Vp Genetic ID - SHEILA MCBC with platelet count + automated [id number] 07:43:00 * Test Item Value Reference Range Interpretation Comments WBC (test code = 6690-2) 5.0 3.5- 10.5 K/L RBC (test code = 789-8) 5.02 4.63- 6.08 M/L MCHC (test code = 786-4) 34.0 32.3- 36.5 GM/DL Hematocrit (test code = 4544-3) 45.6 % 40.1-51 MCV (test code = 787-2) 90.8 fL 79-92.2 MCH (test code = 785-6) 30.9 pg 25.7-32.2 RDW (test code = 788-0) 12.1 % 11.6-14.4 Platelets (test code = 777-3) 150 150- 450 K/CU MM MPV (test code = 97869-5) 9.5 fL 9.4-12.4 nRBC (test code = 413) 0 0- 0 /100 WBC % Neutros (test code = 429) 58 % % Lymphs (test code = 430) 29 % % Monos (test code = 431) 9 % % Eos (test code = 432) 3 % % Baso (test code = 437) 1 % # Neutros (test code = 670) 2.89 1.78- 5.38 K/L # Lymphs (test code = 414) 1.44 1.32- 3.57 K/L # Monos (test code = 415) 0.43 0.30- 0.82 K/L # Eos (test code = 416) 0.15 0.04- 0.54 K/L # Baso (test code = 417) 0.03 0.01- 0.08 K/L Immature Granulocytes-Relative (test code = 2801) 0 % 0-1 [facility] W/PLT COUNT & AUTO [id number] 07:43:00* Test Item Value Reference Range Interpretation Comments WHITE BLOOD CELL COUNT (BEAKER) (test code = 775) 5.0 K/ L 3.5- 10.5 RED BLOOD CELL COUNT (BEAKER) (test code = 761) 5.02 M/ L 4.63-6 .08 HEMOGLOBIN (BEAKER) (test code = 410) 15.5 GM/DL 13.7-17.5 HEMATOCRIT (BEAKER) (test code = 411) 45.6 % 40.1-51.0 MEAN CORPUSCULAR VOLUME (BEAKER) (test code = 753) 90.8 fL 79. 0-92.2 MEAN CORPUSCULAR HEMOGLOBIN (BEAKER) (test code = 751) 30.9 pg 25.7-32.2 MEAN CORPUSCULAR HEMOGLOBIN CONC (BEAKER) (test code = 752) 34.0 GM/DL 32.3-36.5 RED CELL DISTRIBUTION WIDTH (BEAKER) (test code = 412) 12.1 % 11.6-14.4 PLATELET COUNT (BEAKER) (test code = 756) 150 K/CU MM 150-450 MEAN PLATELET VOLUME (BEAKER) (test code = 754) 9.5 fL 9.4-12 .4 NUCLEATED RED BLOOD CELLS (BEAKER) (test code = 413) 0 /100 WBC 0 -0 NEUTROPHILS RELATIVE PERCENT (BEAKER) (test code = 429) 58 % LYMPHOCYTES RELATIVE PERCENT (BEAKER) (test code = 430) 29 % MONOCYTES RELATIVE PERCENT (BEAKER) (test code = 431) 9 % EOSINOPHILS RELATIVE PERCENT (BEAKER) (test code = 432) 3 % BASOPHILS RELATIVE PERCENT (BEAKER) (test code = 437) 1 % NEUTROPHILS ABSOLUTE COUNT (BEAKER) (test code = 670) 2.89 K/ L 1.78-5.38 LYMPHOCYTES ABSOLUTE COUNT (BEAKER) (test code = 414) 1.44 K/ L 1.32-3.57 MONOCYTES ABSOLUTE COUNT (BEAKER) (test code = 415) 0.43 K/ L 0. 30-0.82 EOSINOPHILS ABSOLUTE COUNT (BEAKER) (test code = 416) 0.15 K/ L 0.04-0.54 BASOPHILS ABSOLUTE COUNT (BEAKER) (test code = 417) 0.03 K/ L 0. 01-0.08 IMMATURE GRANULOCYTES-RELATIVE PERCENT (BEAKER) (test code = 2801) 0 % 0-1 CHEM [id number] 18:44:0097[facility] RAJHV4390-99-49 18:44:007.5 [facility] HTQYT1102-26-03 18:44:003.8[facility] PANEL 2016-09-06 18:44:0036[facility] [id number] 18:44:001.2[facility] ELNWK0998-42-41 18:44:0064[facility] QTPSE9106-17-66 18:44:0021[facility] GLVCU8392-14-55 18:44:73463Ttfqctyc HermannCHEM OHDPL1770-38-52 18:44:78544Qzfkwhrw HermannCHEM MBKGQ3108-23-34 18:44:003.7 [facility] HOHVA9413-67-72 18:44:0031[facility] PANEL 2016-09-06 18:44:008.9[facility] GEGKP9828-06-40 18:44:0097[facility] JJCQC6416-97-12 18:44:0015[facility] BWCSC8263-12-20 18:44:000.84[facility] KAYJL6213-36-52 18:44:008.7[facility] YABJY0399-19-90 18:44:0018[facility] TTPMB7858-49-93 18:44:003.7 [facility] UDVBX8073-18-93 18:44:001.0[facility] PANEL 2016-09-06 18:44:04227Jexduhou HermannCHEM HLGZQ5793-27-50 18:44:002.1[facility] VgftcriMJEMFEMAYL8445-28-11 18:44:000.5[facility] FpjczkgGOONOYARDO6526-69-64 18:44:000.1[facility] CkvgnomZQQZOXVBTM0066-57-64 18:44:007.3[facility] Satish QHLTJECZEA4305-78-30 18:44:0063.5[facility] RtmbvtqHZHUZANLJP6594-31-33 18:44:00 27.6[facility] KgjmrioSJRBSBFNUV5183-43-63 18:44:004.2[facility]annHEMATOLOGY 2016-09-06 18:44:001.8[facility] OchueiuQKUGSWSLGL7264-71-73 18:44:000.5[facility] VfnkbfgKVSNUKJLTU8296-37-83 18:44:001.1[facility] CrqekgpXDVXOTTVYO0448-95-24 18:44:007.8[facility] BiswfaeUPRMETJECC6373-35-83 18:44:15683Urqtmmax [place] IOWARMRYSA7085-77-20 18:44:0012.8[facility] CbfbzgvJDCVYSACSR4784-42-14 18:44:00 5.20[facility] RzavtsiTXDOKZCGDW7064-77-37 18:44:006.6[facility]annHEMATOLOGY 2016-09-06 18:44:0015.2[facility] IiwxondCDFZMGIPJW9701-64-33 18:44:0088.0[facility] WnilareVLLFNGYIUX6541-07-29 18:44:0045.7[facility] QjdpvdoUTEOZPGJYW4833-99-40 18:44:0033.2[facility] ZltluwaBSRBFKPBXE9160-37-57 18:44:00* Test Item Value Reference Range Interpretation Comments MCH (test code = MCH) 29.2 pg 27.0-31.0 [facility] [id number] 18:44:001.016[facility] ONJJJ5623-67-72 18:44:006.0[facility] JZCEF1939-75-04 18:44:00 Clear (09/06/16 12:44 PM)[facility] LNWHC9139-82-02 18:44:00<1 [facility] HDKVX2537-75-42 18:44:00Negative *NA*(09/06/16 12:44 PM)[facility] [id number] 18:44:00Negative (09/06/16 12:44 PM)[facility] [id number] 18:44:00Negative (09/06/16 12:44 PM)[facility] OAQUC2345-56-57 18:44:00Negative (09/06/16 12:44 PM)[facility] NKMVZ7717-68-63 18:44:00<1[facility] [place]
[2020-08-28] MEDS ORDERED: SODIUM CHLORIDE FLUSH 10 ML SYR INJ PRN (08:45)
[2020-08-28] MEDS ORDERED: ONDANSETRON HCL INJ 2MG/ML 2ML 2 MG/ML VIAL IV STA (08:48)
[2020-08-28] MEDS ORDERED: SODIUM CHLORIDE 0.9% 1000ML 1,000 ML IV STA (08:48)
--- NOTE | 2020-08-28 08:48 | Diagnostic Imaging Report ---
EXAM: CXR 2 VIEW - HOPD DATE: 08/28/2020 8:39 AM INDICATION: Dizziness, vomiting COMPARISON: None FINDINGS: The trachea is midline. The lungs are symmetrically expanded without evidence for large focal consolidation, pneumothorax, or significant pleural effusion. The cardiomediastinal silhouette and pulmonary vasculature are within normal limits. No acute osseous abnormality is identified. The surrounding soft tissues are unremarkable. IMPRESSION: No acute cardiopulmonary process identified. Signed by: Dr. Iriwn Young MD on 08/28/2020 8:45 AM
[2020-08-28] MEDS ORDERED: MECLIZINE HCL 12.5 MG TAB PO ONE (09:30)
[2020-08-28] MEDS ORDERED: MECLIZINE HCL 12.5 MG TAB ONE (09:51)
[2020-08-28] MEDS ORDERED: SODIUM CHLORIDE 0.9% 1000ML 1,000 ML ONE (09:52)
[2020-08-28] MEDS ORDERED: ONDANSETRON HCL INJ 2MG/ML 2ML 2 MG/ML VIAL ONE (09:52)
[2020-08-28] MEDS ORDERED: MECLIZINE HCL25 MG PO (10:52)
[2020-08-28] MEDS ORDERED: CIPRO500 MG PO (10:52)
[2020-08-28] MEDS ORDERED: ONDANSETRON ODT8 MG PO (10:52)
--- NOTE | 2020-08-28 10:52 | Emergency Department Note ---
History of Present Illnes History of Present Illness Chief Complaint: n/v/room spinning History of Present Illness This is a 60 year old male. was doing well until 4 days ago then epigastric pain then n/v then was seen at an the [facility] ER and worked up cardiac and gi sims and all came back negative and pt was discharged home. then pt started to have room spinning. 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 Onset (how long ago): day(s) (2) Location: epigastric pain Quality: sharp Radiation: Reports non-radiation Severity: moderate Onset quality: gradual Duration (how long): day(s) (2) Timing of current episode: intermittent Progression: worsening Chronicity: new Context: Denies recent illness, Denies recent surgery, Denies recent immobilization, Denies recent travel, Denies trauma/injury, Denies new medications, Denies hx of DVT/PE, Denies non-compliance w/ medications Relieving factors: none Exacerbating factors: none Associated symptoms: Reports headaches, Reports malaise, Reports nausea/vomiting Treatments prior to arrival: none Past Medical/Family History Physician Review I have reviewed the patient's past medical and family history. Any updates have been documented here. Past Medical History Recent Fever: No Clinical Suspicion of Infectio: No New/Unexplained Change in Ment: No Past Medical History: Hypertension Past Surgical History: None Social History Smoking Cessation: Never Smoker Counseling Performed: No Alcohol Use: None Any Illegal Drug Use: No Physically hurt or threatened: No Other Any Pre-Existing Lines (PICC,: No Review of Systems Review of Systems Constitutional: Reports as per HPI EENTM: Reports no symptoms Cardiovascular: Reports no symptoms Respiratory: Reports no symptoms Gastrointestinal: Reports as per HPI, Reports abdominal pain, Reports nausea, Reports vomiting Genitourinary: Reports no symptoms Musculoskeletal: Reports no symptoms Integumentary: Reports no symptoms Neurological: Reports as per HPI Psychological: Reports no symptoms Endocrine: Reports no symptoms Hematological/Lymphatic: Reports no symptoms Review of other systems: All other systems negative Physical Exam Related Data Allergies: Coded Allergies: No Known Allergies (Unverified , 08/28/20) Triage Vital Signs Vital Signs Date Time Temp Pulse Resp B/P (MAP) Pulse Ox O2 Delivery O2 Flow Rate FiO2 08/28/20 07:54 97.6 66 18 150/73 100 Room Air Vital signs reviewed: Yes Physical Exam CONSTITUTIONAL Constitutional: Present well-developed, Present well-nourished HENT HENT: Present normocephalic, Present atraumatic, Present mucosae dry, Present nose normal, Present other (+fatigueable horizontal nystagmus) HENT L/R: Present left ext ear normal, Present right ext ear normal EYES Eyes: Reports PERRL, Reports conjunctivae normal NECK Neck: Present ROM normal, Present supple PULMONARY Pulmonary: Present effort normal, Present breath sounds normal CARDIOVASCULAR Cardiovascular: Present regular rhythm, Present heart sounds normal, Present capillary refill normal, Present normal rate GASTROINTESTINAL Abdominal: Present soft, Present nontender, Present bowel sounds normal, Present tender (epigastric tenderness) GENITOURINARY Genitourinary: Present exam deferred SKIN Skin: Present warm, Present dry MUSCULOSKELETAL Musculoskeletal: Present ROM normal NEUROLOGICAL Neurological: Present alert, Present oriented x 3, Present no gross motor or sensory deficits PSYCHOLOGICAL Psychological: Present mood/affect normal, Present judgement normal Results Laboratory Lab results reviewed: Yes Laboratory comments CBC NORMAL EXPECT NGR=873, CMP NORMAL, NORMAL CARDIAC ENZYMES, Imaging Imaging results reviewed: Yes Impressions [place] [address] Patient Name: GRECIA BAZZI MR #: [id number] : 1960 Age/Sex: 60/M Req #: [id number] Adm Physician: Ordered by: IVETT BAIRD Report #: [id number] Location: [facility] Room/Bed: ___ Procedure: [id number] HOPD/CXR 2 VIEW - HOPD Exam Date: 08/28/20 Exam Time: 0840 REPORT STATUS: Signed EXAM: CXR 2 VIEW - HOPD DATE: 08/28/2020 8:39 AM INDICATION: Dizziness, vomiting COMPARISON: None FINDINGS: The trachea is midline. The lungs are symmetrically expanded without evidence for large focal consolidation, pneumothorax, or significant pleural effusion. The cardiomediastinal silhouette and pulmonary vasculature are within normal limits. No acute osseous abnormality is identified. The surrounding soft tissues are unremarkable. IMPRESSION: No acute cardiopulmonary process identified. Signed by: Dr. Irwin Young MD on 08/28/2020 8:45 AM Dictated By: IRWIN YOUNG MD 4 Transcribed By: JADE on 08/28/20844 COPY TO: IVETT BAIRD~ Procedures 12 Lead ECG Interpretation ECG Interpretation : ECG: ECG 1 Heating Systems Installer: Interpreted by ED physician Date: Aug 28, 2020 Time: 08:12 Rhythm: bundle branch block (INCOMPLETE RBBB) Ectopy: frequent PVC's Rate: normal BPM: 61 QRS axis: normal ST segments normal: Yes T waves normal: Yes Clinical Impression: abnormal ECG Assessment & Plan Medical Decision Making MDM see below Reassessment Reassessment no symptoms s/p meds/ivfs Assessment & Plan Final Impression: (1) Acute gastritis (2) Vomiting (3) Dehydration (4) Vertigo Depart Disposition: HOME, SELF-CARE Last Vital Signs Date Time Temp Pulse Resp B/P (MAP) Pulse Ox O2 Delivery O2 Flow Rate FiO2 08/28/20 07:54 97.6 66 18 150/73 100 Room Air Home Meds Active Scripts Ciprofloxacin Hcl (CIPRO) 500 Mg Tablet, 500 MG PO Q12H, #20 TAB Prov:IVETT BAIRD 08/28/20 Meclizine Hcl (MECLIZINE HCL) 25 Mg Tablet, 25 MG PO Q8H PRN for DIZZINESS, #20 1 Refill PRN VERTIGO Prov:IVETT BAIRD 08/28/20 Ondansetron (ONDANSETRON ODT) 8 Mg Tab.rapdis, 4 MG PO Q4HR PRN for NAUSEA AND VOMITING, #30 Prov:IVETT BAIRD 08/28/20 Reported Medications Hydrochlorothiazide (HYDROCHLOROTHIAZIDE) 25 Mg Tablet, 12.5 MG DAILY, #30 TAB 08/28/20 Telmisartan (MICARDIS) 80 Mg Tablet, 80 MG PO DAILY, TAB 08/28/20 Metoprolol Succinate (METOPROLOL SUCCINATE) 50 Mg Tab.er.24h, 100 MG PO DAILY, MG 08/28/20 Medications in the ED Sodium Chloride 10 ml PRN PRN INJ IV SITE FLUSH; Start 08/28/20 at 08:45; Stop 09/27/20 at 08:44 Ondansetron HCl 4 mg NOW STAT IV Last administered on 08/28/20at 09:53; Admin Dose 4 MG; Start 08/28/20 at 08:48; Stop 08/28/20 at 09:06; Status DC Sodium Chloride 1,000 ml @ 1,000 mls/hr Q1H STAT IV Last administered on 08/28/20at 09:53; Admin Dose 1,000 MLS/HR; Start 08/28/20 at 08:48; Stop 08/28/20 at 09:47; Status DC Meclizine HCl 25 mg ONCE ONCE PO Last administered on 08/28/20at 09:53; Admin Dose 25 MG; Start 08/28/20 at 09:30; Stop 08/28/20 at 09:31; Status DC Meclizine HCl 25 mg STK-MED ONCE .ROUTE ; Start 08/28/20 at 09:51; Stop 08/28/20 at 09:48; Status DC Ondansetron HCl 4 mg STK-MED ONCE .ROUTE ; Start 08/28/20 at 09:52; Stop 08/28/20 at 09:48; Status DC Sodium Chloride 1,000 ml @ ud STK-MED ONCE .ROUTE ; Start 08/28/20 at 09:52; Stop 08/28/20 at 09:48; Status DC IVETT BAIRD Aug 28, 2020 10:52
[2020-08-28 11:12] VITALS: BP 149/72
== END 2020-08-28 11:27 | disposition home or self-care (01) ==
LOC: FSED 08:15
DX: R10.13 Epigastric pain (principal); K29.00 Acute gastritis without bleeding; R11.2 Nausea with vomiting, unspecified; E86.0 Dehydration; R42 Dizziness and giddiness; I10 Essential (primary) hypertension
CPT/HCPCS: 71046; 80053; 80076; 81003; 82553; 84484; 85025; 93005; 96374; 99284; J2405; J7030; J8597